=== PATIENT | male | born 1990 | race Caucasian/White ===

== ENCOUNTER 2018-05-02 00:47 | Emergency (ER) | payer SELFPAY ==
[2018-05-02 00:48] VITALS: BP 129/79
--- NOTE | 2018-05-02 00:52 | ER Report ---
History and Physical Time Seen By MD: 00:49 HPI/ROS CHIEF COMPLAINT: Prison clearance HISTORY OF PRESENT ILLNESS: 27-year-old male brought in by Marika COSTA for custodial clearance. Patient appears grossly alcohol intoxicated. Patient voices no complaints. Patient denies any significant past medical history REVIEW OF SYSTEMS: Respiratory: No cough, no dyspnea. Cardiovascular: No chest pain, no palpitations. Gastrointestinal: No vomiting, no abdominal pain. Musculoskeletal: No back pain. Allergies: Coded Allergies: No Known Drug Allergies (Unverified , 05/02/18) Home Meds No Active Prescriptions or Reported Meds Reviewed Nurses Notes: Yes Old Medical Records Reviewed: Yes Constitutional Vital Sign - Last 24 Hours 05/02/18 00:48 Temp 97.4 Pulse 119 Resp 16 B/P (MAP) 129/79 Pulse Ox 95 O2 Delivery Room Air Physical Exam General Appearance: The patient is alert, has no immediate need for airway protection and no current signs of toxicity. - Stable, afebrile, pulse ox normal. Palpation of the head and neck reveal no tenderness or trauma HEENT: Pupils equal and round no injection. TMs normal, oropharynx without dental trauma, odor of EtOH on breath Respiratory: Chest is non tender, lungs are clear to auscultation. Cardiac: regular rate and rhythm Gastrointestinal: Abdomen is soft and non tender, no masses, bowel sounds normal. Musculoskeletal: Neck: Neck is supple and non tender. Extremities have full range of motion and are non tender. Skin: No rashes or lesions. DIFFERENTIAL DIAGNOSIS: After history and physical exam differential diagnosis was considered for custodial clearance, alcohol intoxication, polysubstance abuse Medical Decision Making ED Course/Re-evaluation ED Course Patient admitted to an examination room. H&P was done. The dental diagnoses was considered. On clinical examination. Patient voices no complaints. His vital signs are stable. There are no findings on clinical examination. Patient's medically cleared for custodial admission. Decision to Disposition Date: May 02, 2018 Decision to Disposition Time: 00:51 Depart Departure Latest Vital Signs Vital Signs Date Time Temp Pulse Resp B/P (MAP) Pulse Ox O2 Delivery O2 Flow Rate FiO2 05/02/18 00:48 97.4 119 16 129/79 95 Room Air Impression: Primary Impression: Medical clearance for incarceration Additional Impression: Alcohol intoxication Condition: Improved Disposition: HOME OR SELF-CARE New Scripts No Active Prescriptions or Reported Meds Patient Instructions: Alcohol Intoxication (ED) Additional Instructions: Medical cleared for custodial admission Problem Qualifiers Additional Impression: Alcohol intoxication Complication of substance-induced condition: uncomplicated Qualified Codes: F10.920 - Alcohol use, unspecified with intoxication, uncomplicated BRENDA BOSS DO May 02, 2018 00:52
== END 2018-05-02 00:57 ==
LOC: ER 00:51
DX: F10.920 Alcohol use, unspecified with intoxication, uncomplicated (principal)
CPT/HCPCS: 99281